=== PATIENT | female | born 1990 | race Caucasian/White ===

== ENCOUNTER 2018-05-11 23:08 | Emergency (ER) | payer SELFPAY | END 2018-05-12 00:19 | disposition left against medical advice (07) | LOC: ED 23:08 | DX: Z02.89 Encounter for other administrative examinations (principal) ==

== ENCOUNTER 2018-11-26 18:45 | Emergency (ER) | payer SELFPAY | END 2018-11-26 20:54 | disposition home or self-care (01) | LOC: ED 18:45 ==